=== PATIENT | male | born 1965 | race Two or more races ===

== ENCOUNTER 2024-10-11 17:55 | Emergency (ER) | payer OTHER ==
[~2024-10-11] VITALS: Ht 162.6 cm; Wt 90.9 kg
[2024-10-11] MEDS ORDERED: LISI-894 PO (18:11)
[2024-10-11] MEDS ORDERED: GLIP10TA17 PO (18:11)
[2024-10-11] MEDS ORDERED: METF750T57 PO (18:11)
[2024-10-11] MEDS ORDERED: TRAZ-252 PO (18:11)
[2024-10-11] MEDS: SODIUM CHLORIDE 0.9% 1,000 ML IV ONE (19:23)
[2024-10-11 19:37] LABS: BASOPHILS % (AUTO) 0.9 % (0.0-2.0); EOSINOPHILS % (AUTO) 0.2 % (1.0-6.0); HEMATOCRIT 46.4 % (41-53); HEMOGLOBIN 15.8 g/dL (13.5-17.5); LYMPHOCYTES % (AUTO) 17.6 % (22.0-44.0); MEAN CORPUSCULAR HEMOGLOBIN 31.1 pg (26.0-34.0); MEAN CORPUSCULAR HGB CONC 34.1 G/dL (31.0-37.0); MEAN CORPUSCULAR VOLUME 91 fL (80-100); MONOCYTES # (AUTO) 0.6 K/uL (0.1-1.0); MONOCYTES % (AUTO) 9.6 % (2.0-9.0); NEUTROPHILS # (AUTO) 4.2 K/uL (1.8-7.7); NEUTROPHILS % (AUTO) 71.7 % (40.0-70.0); PLATELET COUNT (AUTO) 238 K/uL (150-450); RED BLOOD CELL COUNT(AUTO) 5.09 MIL/uL (4.50-5.90); RED CELL DISTRIBUTION WIDTH 12.6 % (11.5-14.5); WHITE BLOOD COUNT (AUTO) 5.9 K/uL (4.5-11.0)
[2024-10-11 19:45] LABS: ANION GAP 13 mmol/L (8-16); CALCIUM, TOTAL 9.5 mg/dL (8.8-10.5); CARBON DIOXIDE 22 mmol/L (22-29); CHLORIDE 99 mmol/L (98-107); CREATININE 1.13 mg/dL (0.60-1.30); GLOMERULAR FILTR. RATE CALC > 60 mL/min (>60); GLUCOSE,RANDOM 393 mg/dL (70-110); POTASSIUM 3.7 mmol/L (3.5-5.1); SODIUM SERUM 134 mmol/L (136-145); UREA NITROGEN, BLOOD 15 mg/dL (7-18)
[2024-10-11 19:48] LABS: ALCOHOL, BLOOD (SERUM) < 3 mg/dL (0-10)
[2024-10-11 19:49] LABS: ACETONE,BLOOD NEGATIVE (NEGATIVE)
[2024-10-11 19:54] LABS: TROPONIN I-HIGH SENSITIVITY 9 ng/L (<76)
[2024-10-11] MEDS: INSULIN REGULAR, HUMAN 100 UNITS/ML IVP ONE (20:41)
[2024-10-12] MEDS ORDERED: LORazepam 1 MG TABLET PO ONE (00:15)
[2024-10-12 00:30] VITALS: BP 129/70; PULSE 76; RESP 18; TEMP 97.3; O2SAT 99
[2024-10-12] MEDS: LORazepam 0.5 MG TABLET PO ONE (00:44)
[2024-10-12 06:40] LABS: GLUCOMETER DEV NAME(LOC) ER.7; GLUCOSE,POINT OF CARE 155 MG/DL (70-110)
== END 2024-10-12 00:55 | disposition home or self-care (01) ==
LOC: EMS 17:55
DX: F41.9 Anxiety disorder, unspecified (principal); E11.65 Type 2 diabetes mellitus with hyperglycemia; I10 Essential (primary) hypertension; F32.A Depression, unspecified; Z79.899 Other long term (current) drug therapy
CPT/HCPCS: 99284; 96374; 96361; 80048; 82009; 82962 ×2; 84484; 85025; 93005; G0480; J1815; J7030; 36415-L1; 36415-TC